=== PATIENT | male | born 1935 | race Asian ===

== ENCOUNTER → 2018-04-20 | Outpatient (CLI) | payer MEDICARE, OTHER ==
[~2018-04-20] MED LIST: ACET-2902 PO; AMIO200T44 PO; ASPI-556 PO; ATOR20TA65 PO; AUD NEB; B CO1CAP4 PO; CARV25 PO; CHOL200016 PO; D50SYG IV; DOCU250C91 PO; DONE5TAB5 PO; FINA5TAB41 PO; FOLI1 PO; HEP5KI SQ; HYDR-3965 PO; INSLAN SQ; INSNOV SQ; IPRA3AMP24 NEB; LEVO5TAB13 PO; LOSA50TA37 PO; MEMA28CA PO; MIRT30 PO; NIFE30TA26 PO; NORM2DIS4 IJ; ONDA220I IV; PHOSLOC PO; RAMI2.5 PO; ZOLP5 PO
== END | disposition home or self-care (01) ==
LOC: RADPV 10:55
PROVIDERS: ATTEND Internal Medicine
DX: R94.31 Abnormal electrocardiogram [ECG] [EKG] (principal); I13.0 Hypertensive heart and chronic kidney disease with heart failure and stage 1 through stage 4 chronic kidney disease, or unspecified chronic kidney disease; I50.9 Heart failure, unspecified; N18.6 End stage renal disease; E11.22 Type 2 diabetes mellitus with diabetic chronic kidney disease; M10.9 Gout, unspecified; E78.00 Pure hypercholesterolemia, unspecified
CPT/HCPCS: 93306